=== PATIENT | female | born 1955 | race Caucasian/White ===

== ENCOUNTER → 2023-01-29 | Outpatient (CLI) | payer OTHER ==
--- NOTE | 2023-01-29 17:15 | XR ---
EXAMINATION TYPE: XR ankle complete LT, XR tibia fibula LT, XR foot complete LT DATE OF EXAM: 01/29/2023 4:55 PM CLINICAL INDICATION:Female, 67 years old with history of S80.12XA, S90.32XA,S09.02XA, M79.662; [facility] COMPARISON: None TECHNIQUE: XR ankle complete LT, XR tibia fibula LT, XR foot complete LT; ankle and foot were imaged in frontal, lateral and oblique projections. The tibia and fibula were evaluated in frontal and lateral views. FINDINGS: There is no evidence of acute osseous pathology. The joint spaces are well-preserved without evidenc e of subluxation or dislocation. Kager's fat pad is intact. Mild soft tissue swelling around the ankl e. No radiopaque foreign bodies are identified. IMPRESSION: 1. No evidence of acute fracture. 2. Subcutaneous swelling around the ankle likely secondary to underlying soft tissue injury.
== END | disposition home or self-care (01) ==
LOC: RADXRMAIN 16:30
PROVIDERS: ATTEND Emergency Medicine
DX: S90.32XA Contusion of left foot, initial encounter (principal); S90.02XA Contusion of left ankle, initial encounter; M25.472 Effusion, left ankle; X58.XXXA Exposure to other specified factors, initial encounter

== ENCOUNTER → 2023-01-29 | Outpatient (CLI) | payer OTHER ==
--- NOTE | 2023-01-29 16:26 | US ---
EXAMINATION TYPE: US venous doppler duplex LE LT DATE OF EXAM: 01/29/2023 4:18 PM COMPARISON: NONE CLINICAL INDICATION: Female, 67 years old with history of S80.12XA; Left leg pain after injury 1 [place] h ago SIDE PERFORMED: Left TECHNIQUE: The lower extremity deep venous system is examined utilizing real time linear array sonog levy with graded compression, doppler sonography and color-flow sonography. VESSELS IMAGED: Common Femoral Vein Deep Femoral Vein Greater Saphenous Vein * Femoral Vein Popliteal Vein Small Saphenous Vein * Proximal Calf Veins (* superficial vessels) Left Leg: Negative for DVT Results called to YOLANDE Stanley at time of exam IMPRESSION: Grayscale, color doppler, spectral doppler imaging performed of the deep veins of the lo wer extremities. There is normal flow, compressibility, vascular waveforms.
== END | disposition home or self-care (01) ==
LOC: RADUSWWP 15:57
PROVIDERS: ATTEND Emergency Medicine
DX: S80.12XA Contusion of left lower leg, initial encounter (principal); S90.32XA Contusion of left foot, initial encounter; S90.02XA Contusion of left ankle, initial encounter

== ENCOUNTER 2023-12-27 10:17 | Day surgery (SDC) | payer MEDICARE, BC ==
--- NOTE | 2023-12-27 08:17 | P.GSHP ---
History of Present Illness H&P Date: 12/27/23 CHIEF COMPLAINT: Scalp tumor HISTORY OF PRESENT ILLNESS: The patient is a 68 year-old female with over 6 month history of growing painful anterior and posterior scalp mass. She has had no additional diagnostic imaging. She presents today for surgical excision. PAST MEDICAL HISTORY: Please see list. PAST SURGICAL HISTORY: Please see list. MEDICATIONS: Please see list. ALLERGIES: Please see list. SOCIAL HISTORY: No illicit drug use FAMILY HISTORY: No reports of Crohn disease or ulcerative colitis. REVIEW OF ORGAN SYSTEMS: CONSTITUTIONAL: No reports of fevers or chills. GI: Denies any blood in stools or constipation. PHYSICAL EXAM: VITAL SIGNS: Stable SKIN: Well perfused. Good skin turgor. 3 cm lesion overlying the anterior scalp. Musculoskeletal: No clubbing cyanosis or edema GENERAL: Well developed and in no acute distress. Pleasant. HEENT: No sclera icterus. Extraocular movements grossly intact. Moist buccal mucosa. Head is atraumatic, normocephalic. Hears conversational speech. No nasal drainage. NECK: Supple without lymphadenopathy. No JV distention. CHEST: Non-labored respirations and equal bilateral excursions. CARDIOVASCULAR: Regular rate and rhythm. Palpable 2+ radial pulses. ABDOMEN: Soft. Non-tender. Nondistended. NEUROLOGIC: No focal or lateralizing signs. PSYCH: Appropriate affect. Alert and oriented to person, place and time. ASSESSMENT: 1. Anterior scalp tumor, over 5 cm PLAN: 1. Will proceed of excision of posterior scalp tumor 2. DVT prophylaxis. 3. Antibiotic prophylaxis. 4. Time of recovery, at least one week. 5. Benefits and risks including numbness, decreased sensation, pain, cosmetic deformity were reviewed Past Medical History Past Medical History: Hyperlipidemia, Hypertension Additional Past Medical History / Comment(s): palpitations at times, vertigo, History of Any Multi-Drug Resistant Organisms: None Reported Past Surgical History: No Surgical Hx Reported Additional Past Surgical History / Comment(s): d & c, Past Anesthesia/Blood Transfusion Reactions: No Reported Reaction Smoking Status: Never smoker - Past Family History Father Family Medical History: No Reported History Medications and Allergies Home Medications Medication Instructions Recorded Confirmed Type Chlorthalidone 12.5 mg PO DAILY 12/24/23 12/24/23 History Rosuvastatin [Crestor] 10 mg PO DAILY 12/24/23 12/24/23 History lisinopriL [Zestril] 20 mg PO DAILY 12/24/23 12/24/23 History Allergies Allergy/AdvReac Type Severity Reaction Status Date / Time Penicillins Allergy Unknown Verified 12/24/23 09:12
[~2023-12-27 10:17] MED LIST: ONDANSETRON 4 MG/2 ML VIAL IVP PRN; Pre Op ABX Message 1 EACH MISC MISCELLANE ONE
[2023-12-27] MEDS: MELOXICAM 7.5 MG TAB PO PRN (10:48)
[2023-12-27] MEDS: ACETAMINOPHEN TAB 500 MG TAB PO PRN (10:48)
[2023-12-27] MEDS: DEXAMETHASONE SOD PHOSPHATE 4 MG/ML 1 ML VIAL IV ONE (11:02)
[2023-12-27] MEDS: HEPARIN SODIUM,PORCINE 5,000 UNIT/ML 1 ML VIAL SQ PRN (11:02)
[2023-12-27] MEDS: ONDANSETRON 4 MG/2 ML VIAL IVP ONE (11:02)
[2023-12-27] MEDS: IV FLUID CONTINUATION 1,000 ML IV ONE (11:08)
[2023-12-27] MEDS: LACTATED RINGERS 1,000 ML IV SCH (11:09)
[2023-12-27] MEDS ORDERED: fentaNYL (PF) 50 MCG/ML 2 ML AMP ONE (11:13)
[2023-12-27] MEDS ORDERED: SUCCINYLCHOLINE CHLORIDE 200 MG/10 ML VIAL IV ONE (11:13)
[2023-12-27] MEDS ORDERED: MIDAZOLAM 2 MG/2 ML VIAL ONE (11:13)
[2023-12-27] MEDS ORDERED: PROPOFOL 10 MG/ML 20 ML VIAL IV ONE (11:13)
[2023-12-27] MEDS ORDERED: ePHEDrine 50 MG/ML 1 ML VIAL ONE (11:13)
[2023-12-27] MEDS ORDERED: PHENYLEPHRINE 10 MG/ML VIAL ONE (11:13)
[2023-12-27 11:15] LABS: Basophils % (A) 0 %; Eosinophils # (A) 0.1 k/uL (0-0.7); Eosinophils % (A) 2 %; HCT 46.1 % (34.0-46.0); HGB 15.3 gm/dL (11.4-16.0); Lymphocytes % (A) 12 %; MCH 30.8 pg (25.0-35.0); MCHC 33.2 g/dL (31.0-37.0); MCV 92.8 fL (80.0-100.0); Mean Platelet Volume 7.7; Monocytes # (A) 0.3 k/uL (0-1.0); Monocytes % (A) 3 %; Neutrophils # (A) 7.3 k/uL (1.3-7.7); Neutrophils % (A) 82 %; Platelet Count 226 k/uL (150-450); RBC 4.96 m/uL (3.80-5.40); WBC 8.9 k/uL (3.8-10.6)
[2023-12-27] MEDS: SODIUM CHLORIDE 0.9% 50 ML with ceFAZolin 2 GM IV ONE (11:18)
[2023-12-27 11:23] LABS: ALT 24 U/L (4-34); AST 24 U/L (14-36); African American GFR (CKD) 78 (>60 ml/min/1.73 sqM); Albumin 4.8 g/dL (3.5-5.0); Alkaline Phosphatase 54 U/L (38-126); Anion Gap 10 mmol/L; Blood Urea Nitrogen 27 mg/dL (7-17); Calcium 9.6 mg/dL (8.4-10.2); Carbon Dioxide 26 mmol/L (22-30); Chloride 106 mmol/L (98-107); Glucose 123 mg/dL (74-99); Non-African American GFR(CKD) 68 (>60 ml/min/1.73 sqM); Potassium 3.8 mmol/L (3.5-5.1); Sodium 142 mmol/L (137-145); Total Bilirubin 0.8 mg/dL (0.2-1.3); Total Protein 7.5 g/dL (6.3-8.2)
[2023-12-27] MEDS: LIDOCAINE 1%-EPI 1:100,000 20 ML VIAL SQ ONE (11:47)
[2023-12-27] MEDS: BACITRACIN OINT 1 EACH PACKET TOPICAL ONE (12:10)
[2023-12-27 12:33] VITALS: TEMP 97
[2023-12-27 13:18] VITALS: RESP 14
--- NOTE | 2023-12-27 13:25 | P.OP ---
Date of Procedure: 12/27/23 Description of Procedure: SURGEON: ALISON GUTHRIE MD PREOPERATIVE DIAGNOSES: 1. Occipital scalp tumor, 3 cm 2. Hypertensive heart disease 3. Hyperlipidemia 4. Hyperglycemia POSTOPERATIVE DIAGNOSES: 1. Occipital scalp tumor, 3 cm 2. Hypertensive heart disease 3. Hyperlipidemia 4. Hyperglycemia PROCEDURES PERFORMED: 1. Excision of occipital scalp tumor, 3 cm, subcutaneous with intermediate closure, 3-cm Anesthesia: GETA, local Estimated Blood Loss (ml): 5 Pathology: other (scalp mass) Condition: stable Disposition: same day COMPLICATIONS: None. Operative Findings: 1. Excision of deep subcutaneous tumor occiput, 3 cm INDICATIONS: The patient is a 68-year-old female who presents with posterior/occipital scalp tumor. Benefits and risks of surgical intervention were described including bleeding, infection. Informed consent was obtained. DESCRIPTION OR PROCEDURE: In the preoperative area, the area of concern was marked with indelible marker after partying and braiding her hair. Patient was brought into the operating room. After general induction, patient was reposition ed prone. The scalp was prepped and draped in a standard sterile fashion. Timeout protocol was confirmed with the surgical team regarding the patient's name, procedure to be performed including preoperative medications. DVT prophylaxis was confirmed. A field block was placed of the occipital scalp. A longitudinal incision using #15 blade was made along the marking into the deep subcutaneous tissue. Blunt dissection including minimal Bovie cautery was used to control bleeding. The tumor was found superficial to the fascia. The tumor was firm and solid and passed off the field. Final running suture of 3-0 Prolene was placed to completely close the skin. The skin was cleansed with hydrogen peroxide followed by bacitracin ointment along the closure. At the end of the procedure, needle, sponge, and instrument count was verified correct by surgical services asst. The patient tolerated the procedure well. Plan - Discharge Summary Discharge Rx Participant: No New Discharge Prescriptions: New Acetaminophen Tab [Tylenol Tab] 1,000 mg PO Q6HR PRN #30 tablet PRN Reason: Pain Bacitracin/Polymyx Oint [Polysporin Oint] 1 applic TOPICAL BID #30 gm Continue lisinopriL [Zestril] 20 mg PO DAILY Rosuvastatin [Crestor] 10 mg PO DAILY Chlorthalidone 12.5 mg PO DAILY Discharge Medication List Chlorthalidone 12.5 mg PO DAILY 12/24/23 [History] Rosuvastatin [Crestor] 10 mg PO DAILY 12/24/23 [History] lisinopriL [Zestril] 20 mg PO DAILY 12/24/23 [History] Acetaminophen Tab [Tylenol Tab] 1,000 mg PO Q6HR PRN #30 tablet 12/27/23 [Rx] Bacitracin/Polymyx Oint [Polysporin Oint] 1 applic TOPICAL BID #30 gm 12/27/23 [Rx] Follow up Appointment(s)/Referral(s): Alison Guthrie MD [STAFF PHYSICIAN] - 01/08/24 11:45 am Patient Instructions/Handouts: Scalp Lesion (GEN), General Mass Excision (DC) Activity/Diet/Wound Care/Special Instructions: May gently wash around the dressing with soap and water. Please take Tylenol, Aleve, or ibuprofen scheduled for next 2-3 days. Apply bacitracin ointment twice daily after washing wound with antibacterial soap then dab with hydrogen peroxide Discharge Disposition: HOME SELF-CARE
[2023-12-27 13:27] VITALS: BP 137/65; PULSE 89
== END 2023-12-27 13:49 | disposition home or self-care (01) ==
LOC: OR 10:17
PROVIDERS: ATTEND Surgery Plastic and Reconstructive Surgery
CPT/HCPCS: 80053; 85025; 88304

== ENCOUNTER → 2024-05-30 | Outpatient (CLI) | payer MEDICARE ==
--- NOTE | 2024-05-31 06:32 | XR ---
EXAMINATION TYPE: XR knee complete LT DATE OF EXAM: 05/30/2024 CLINICAL INDICATION: Female, 69 years old with history of M25.562 PAIN IN LEFT KNEE, pain TECHNIQUE: 3 views of the knee were obtained. COMPARISON: None. FINDINGS: There is no acute fracture/dislocation evident in left knee. Mild to moderate tricompartme nt joint space loss. No significant spurring. Overlying clothing or blanket material is present. IMPRESSION: As above. [facility], , 05/31/2024 6:29 AM
== END | disposition home or self-care (01) ==
LOC: LABWHC1 16:35
PROVIDERS: ATTEND Family Medicine
DX: M25.862 Other specified joint disorders, left knee (principal)